=== PATIENT | female | born 1965 | race Caucasian/White ===

== ENCOUNTER 2024-02-16 11:38 | Inpatient (IN) | payer BC ==
[~2024-02-16] VITALS: Ht 167.6 cm; Wt 76.7 kg
[2024-02-16] VITALS (22 sets, daily range): BP systolic 111–167; BP diastolic 70–101; PULSE 101–145; RESP 13–29; TEMP 98.5–98.8; O2SAT 90–96
[2024-02-16 12:31] LABS: BASOPHILS % (AUTO) 0.4 % (0-1); EOSINOPHILS % (AUTO) 0 % (0-6); HEMATOCRIT 40.8 % (35.0-45.0); HEMOGLOBIN 13.6 g/dl (12.0-16.0); LYMPHOCYTES # (AUTO) 0.6 X10'3 (1.1-4.8); LYMPHOCYTES % (AUTO) 7.9 % (21-51); MEAN CORPUSCULAR HEMOGLOBIN 37.4 PG (27.0-31.0); MEAN CORPUSCULAR HGB CONC 33.2 g/dL (33.0-36.5); MEAN CORPUSCULAR VOLUME 112.5 FL (78-98); MEAN PLATELET VOLUME 7.2 FL (7.4-10.4); MONOCYTES # (AUTO) 0.5 X10'3 (0-0.9); MONOCYTES % (AUTO) 6.2 % (2-12); NEUTROPHILS # (AUTO) 6.2 X10'3 (1.8-7.7); NEUTROPHILS % (AUTO) 85.5 % (42-75); PLATELET COUNT 208 X10'3 (140-440); RED BLOOD COUNT 3.62 X10'6 (4.20-5.60); RED CELL DISTRIBUTION WIDTH 13.9 % (11.5-14.5); WHITE BLOOD COUNT 7.3 X10'3 (4.5-11.0)
[2024-02-16 12:40] LABS: ALANINE AMINOTRANSFERASE 37 U/L (12-78); ALBUMIN 3.8 G/DL (3.4-5.0); ALBUMIN/GLOBULIN RATIO 0.9 (1.1-1.5); ALKALINE PHOSPHATASE 54 IU/L (46-116); ANION GAP 9 (8-16); ASPARTATE AMINO TRANSFERASE 41 U/L (10-37); BILIRUBIN,TOTAL 0.4 MG/DL (0.1-1.0); BLOOD UREA NITROGEN 7 MG/DL (7-18); CALCIUM 8.6 MG/DL (8.5-10.1); CHLORIDE 106 MMOL/L (99-107); CREATININE 0.78 MG/DL (0.40-0.90); GLUCOSE 106 MG/DL (70-104); LIPASE 27 U/L (16-77); POTASSIUM 3.8 MMOL/L (3.5-5.1); SODIUM 139 MMOL/L (135-145); TOTAL PROTEIN 7.9 G/DL (6.4-8.2); eCRCL 73 ML/MIN; eGFR 76 ML/MIN
[2024-02-16 12:57] LABS: PLATELET ESTIMATE DECREASED
[2024-02-16] MEDS: phenoBARBITAL inj 130 MG in normal saline 100ml IV soln 99 ML IV SCH (14:21)
[2024-02-16] MEDS ORDERED: proCHLORperazine 10 MG/2 ml inj IV PRN (14:55)
[2024-02-16] MEDS ORDERED: ondansetron/PF 4mg/2ml inj IV PRN (14:55)
[2024-02-16] MEDS ORDERED: meperidine/PF 25mg/ml syringe IV PRN (14:55)
[2024-02-16] MEDS ORDERED: enalaprilat dihydrate 2.5mg/2ml vial IV PRN (14:55)
[2024-02-16] MEDS ORDERED: labetalol 20mg/4ml (5mg/ml) syringe IV PRN (14:55)
[2024-02-16] MEDS ORDERED: morphine 2 MG/ML inj. syringe IV PRN (14:55)
[2024-02-16] MEDS: HYDROmorphone 1 mg/ml syringe IV ONE (15:03)
[2024-02-16] MEDS: thiamine 100mg/ml 2ml inj. IV ONE (15:03)
[2024-02-16] MEDS ORDERED: potassium Cl 20 mEq SR tablet PO PRN ×2 (15:05)
[2024-02-16] MEDS ORDERED: mag hydrox/Alum hydrox/simeth 30ml oral suspension PO PRN (15:05)
[2024-02-16] MEDS ORDERED: HYDROcodone/acetaminophen 5mg/325mg tablet PO PRN (15:05)
[2024-02-16] MEDS ORDERED: HYDROcodone/acetaminophen 10/325mg tab PO PRN (15:05)
[2024-02-16] MEDS ORDERED: acetaminophen 325mg tablet PO PRN (15:05)
[2024-02-16] MEDS ORDERED: magnesium hydroxide 30ml (MOM) UD suspension PO PRN (15:05)
[2024-02-16] MEDS: thiamine 100mg tablet PO SCH (15:10)
[2024-02-16] MEDS ORDERED: haloperidol lactate 5mg/ml inj IM PRN (15:10)
[2024-02-16] MEDS ORDERED: LORazepam 2 mg/ml vial IV PRN (15:10)
[2024-02-16] MEDS ORDERED: haloperidol 5mg tablet PO PRN (15:10)
[2024-02-16] MEDS: folic acid 1mg tablet PO SCH (15:10)
[2024-02-16] MEDS: normal saline 1000ml 1,000 ML IV ONE (15:11)
[2024-02-16] MEDS: cefoxitin sod inj 2,000 MG in normal saline 100ml IV soln 100 ML IV SCH (15:12)
[2024-02-16] MEDS: IOHEXOL 12MG/ML oral solution 500 ML BOTTLE PO ONE (15:15)
[2024-02-16] MEDS: ringers solution, lacted 1,000 ML IV SCH (15:16)
[2024-02-16 15:19] LABS: APTT 25 SECONDS (22-32); PROTHROMBIN TIME 10.9 SECONDS (9.0-12.0)
[2024-02-16] MEDS ORDERED: iohexol 300mg/ml 100ml inj. ONE (15:20)
[2024-02-16] MEDS: BUPIVACAINE liposomal/PF 13.3 MG/ML vial IM ONE (15:34)
[2024-02-16] MEDS: BUPIVAcaine 2.5mg/ml inj 50ml vial (contains preservative) ONE (15:34)
[2024-02-16] MEDS ORDERED: sevoflurane 250ml liquid IH ONE (15:52)
[2024-02-16] MEDS ORDERED: midazolam 1 mg/ML 2ml injection ONE (16:03)
[2024-02-16] MEDS ORDERED: fentaNYL/PF 50MCG/1 ML 2ML syringe ONE (16:03)
[2024-02-16] MEDS ORDERED: propofol inj 20 ML IV ONE (16:05)
[2024-02-16] MEDS ORDERED: LIDOcaine 2% (20mg/ml) 5ml vial ONE (16:05)
[2024-02-16] MEDS ORDERED: dexamethasone sod phosphate 4mg/ml inj. ONE (16:10)
[2024-02-16] MEDS ORDERED: rocuronium 10mg/ml inj IV ONE (16:10)
[2024-02-16] MEDS ORDERED: morphine 4 MG/ML inj SYRINge ONE (16:49)
[2024-02-16] MEDS ORDERED: ondansetron/PF 4mg/2ml inj ONE (17:16)
[2024-02-16] MEDS ORDERED: neostigmine methylsulfate 1 MG/ML 10ml vial ONE (17:18)
[2024-02-16] MEDS ORDERED: acetaminophen 1,000mg/100ml IV 100 ML IV ONE (17:19)
[2024-02-16] MEDS: sugammadex 200mg/2ml injection IV ONE (17:25)
[2024-02-16] MEDS: meperidine/PF 25mg/ml syringe IV PRN ×2 (17:47→18:14)
[2024-02-16] MEDS: morphine 4 MG/ML inj SYRINge IV PRN (17:49)
[2024-02-16] MEDS: ketorolac trometh 15mg/ml vial 15 MG/ML ML IV ONE (18:46)
[2024-02-16] MEDS ORDERED: phenoBARBITAL inj 130 MG in normal saline 100ml IV soln 99 ML IV SCH (20:00)
[2024-02-16] MEDS: docusate sod 100mg capsule PO SCH (20:00)
[2024-02-16] MEDS: normal saline 1000ml 1,000 ML IV SCH (22:00)
[2024-02-16] MEDS ORDERED: ROSU5TAB43 PO (22:54)
[2024-02-16] MEDS ORDERED: SERT-434 PO (22:54)
[2024-02-16] MEDS ORDERED: METO25TA6 PO (22:54)
[2024-02-16] MEDS ORDERED: TIZA-205 PO (22:54)
[2024-02-17] VITALS (37 sets, daily range): BP systolic 107–168; BP diastolic 56–88; PULSE 92–122; RESP 14–26; TEMP 97.1–99.5; O2SAT 87–98
[2024-02-17] MEDS ORDERED: phenoBARBITAL inj 130 MG in normal saline 100ml IV soln 99 ML IV SCH (00:24)
[2024-02-17] MEDS ORDERED: tizanidine 4mg tablet PO PRN (04:55)
[2024-02-17] MEDS: morphine 2 MG/ML inj. syringe IV PRN ×2 (05:15→21:15)
[2024-02-17] MEDS: normal saline 500ml IV soln 500 ML IV SCH (07:24)
[2024-02-17 07:46] LABS: BASOPHILS % (AUTO) 0.1 % (0-1); EOSINOPHILS % (AUTO) 0 % (0-6); HEMATOCRIT 25.2 % (35.0-45.0); HEMOGLOBIN 8.2 g/dl (12.0-16.0); LYMPHOCYTES # (AUTO) 0.3 X10'3 (1.1-4.8); LYMPHOCYTES % (AUTO) 3.1 % (21-51); MEAN CORPUSCULAR HEMOGLOBIN 36.7 PG (27.0-31.0); MEAN CORPUSCULAR HGB CONC 32.4 g/dL (33.0-36.5); MEAN CORPUSCULAR VOLUME 113.3 FL (78-98); MEAN PLATELET VOLUME 7.7 FL (7.4-10.4); MONOCYTES # (AUTO) 0.7 X10'3 (0-0.9); MONOCYTES % (AUTO) 6.8 % (2-12); NEUTROPHILS # (AUTO) 9.4 X10'3 (1.8-7.7); PLATELET COUNT 231 X10'3 (140-440); RED BLOOD COUNT 2.22 X10'6 (4.20-5.60); RED CELL DISTRIBUTION WIDTH 13.6 % (11.5-14.5); WHITE BLOOD COUNT 10.4 X10'3 (4.5-11.0)
[2024-02-17] MEDS ORDERED: ROSUVASTATIN CALCIUM 5 MG TABLET PO SCH (08:00)
[2024-02-17 08:12] LABS: ALANINE AMINOTRANSFERASE 22 U/L (12-78); ALBUMIN 2.6 G/DL (3.4-5.0); ALBUMIN/GLOBULIN RATIO 0.8 (1.1-1.5); ALKALINE PHOSPHATASE 25 IU/L (46-116); AMYLASE 24 U/L (25-115); ANION GAP 10 (8-16); ASPARTATE AMINO TRANSFERASE 24 U/L (10-37); BILIRUBIN,TOTAL 0.6 MG/DL (0.1-1.0); BLOOD UREA NITROGEN 9 MG/DL (7-18); BUN/CREATININE RATIO 11.1 (10.0-20.0); CALCIUM 7.2 MG/DL (8.5-10.1); CHLORIDE 108 MMOL/L (99-107); CREATININE 0.81 MG/DL (0.40-0.90); GLUCOSE 123 MG/DL (70-104); MAGNESIUM 1.4 MG/DL (1.5-2.4); PHOSPHORUS 3.8 MG/DL (2.3-4.5); POTASSIUM 3.7 MMOL/L (3.5-5.1); SODIUM 141 MMOL/L (135-145); TOTAL CARBON DIOXIDE 23.4 MMOL/L (24-32); TOTAL PROTEIN 5.8 G/DL (6.4-8.2); eCRCL 70 ML/MIN; eGFR 72 ML/MIN
[2024-02-17] MEDS: metoprolol tartrate 25mg tablet PO SCH (08:50)
[2024-02-17] MEDS: sertraline 50mg tablet PO SCH (08:51)
[2024-02-17] MEDS: multivitamins, therapeutics tablet PO SCH (08:52)
[2024-02-17] MEDS: LORazepam 1 MG tablet PO PRN (08:53)
[2024-02-17 10:05] LABS: APTT 23 SECONDS (22-32); FIBRINOGEN 267 MG/DL (177-424); INR 1.1 INR; PROTHROMBIN TIME 11.8 SECONDS (9.0-12.0)
[2024-02-17] MEDS ORDERED: atorvastatin 20mg tablet PO SCH (10:10)
[2024-02-17] MEDS ORDERED: iohexol 300mg/ml 100ml inj. ONE (14:00)
[2024-02-17] MEDS: LORazepam 2 mg/ml vial IV PRN (14:02)
[2024-02-17] MEDS ORDERED: hydrALAZINE 20mg/ml inj. IV PRN (15:20)
[2024-02-17] MEDS ORDERED: labetalol 20mg/4ml (5mg/ml) syringe IV PRN (15:20)
[2024-02-17] MEDS ORDERED: morphine 4 MG/ML inj SYRINge IV PRN (15:20)
[2024-02-17] MEDS ORDERED: morphine 2 MG/ML inj. syringe IV PRN (15:20)
[2024-02-17] MEDS ORDERED: fentaNYL/PF 50MCG/1 ML 2ML syringe IV PRN ×2 (15:20)
[2024-02-17] MEDS: ringers solution, lacted 1,000 ML IV SCH (15:20)
[2024-02-17 15:45] LABS: HEMATOCRIT 23.8 % (35.0-45.0); HEMOGLOBIN 7.9 g/dl (12.0-16.0); MEAN CORPUSCULAR HEMOGLOBIN 36.3 PG (27.0-31.0); MEAN CORPUSCULAR HGB CONC 33.3 g/dL (33.0-36.5); MEAN CORPUSCULAR VOLUME 108.9 FL (78-98); MEAN PLATELET VOLUME 7.8 FL (7.4-10.4); PLATELET COUNT 176 X10'3 (140-440); RED BLOOD COUNT 2.18 X10'6 (4.20-5.60); RED CELL DISTRIBUTION WIDTH 18.1 % (11.5-14.5); WHITE BLOOD COUNT 10.3 X10'3 (4.5-11.0)
[2024-02-17] MEDS ORDERED: sevoflurane 250ml liquid IH ONE (15:59)
[2024-02-17] MEDS ORDERED: propofol inj 20 ML IV ONE (16:01)
[2024-02-17] MEDS ORDERED: LIDOcaine 2% (20mg/ml) 5ml vial ONE (16:01)
[2024-02-17] MEDS ORDERED: rocuronium 10mg/ml inj IV ONE (16:01)
[2024-02-17] MEDS ORDERED: albumin (Human) 5% 250ml 250 ML IV ONE (16:02)
[2024-02-17] MEDS ORDERED: fentaNYL/PF 50MCG/1 ML 2ML syringe ONE ×2 (16:06→16:57)
[2024-02-17] MEDS ORDERED: acetaminophen 1,000mg/100ml IV 100 ML IV ONE (16:28)
[2024-02-17] MEDS ORDERED: ondansetron/PF 4mg/2ml inj ONE (16:28)
[2024-02-17] MEDS ORDERED: labetalol 20mg/4ml (5mg/ml) syringe IV ONE (16:37)
[2024-02-17] MEDS ORDERED: sugammadex 200mg/2ml injection IV ONE (16:56)
[2024-02-17 17:49] LABS: ISTAT ANION GAP 12 (8-12); ISTAT BUN 7 mg/dL (7-18); ISTAT CL 108 mmol/L (99-107); ISTAT CREATININE 0.6 mg/dL (0.6-1.1); ISTAT GLUCOSE 112 mg/dL (70-104); ISTAT HGB 7.1 g/dl (12.0-16.0); ISTAT Hct 21 %PCV (35-45); ISTAT IONIZED CALCIUM 0.96 mmol/L (1.03-1.32); ISTAT K 3.6 mmol/L (3.5-5.1); ISTAT NA 139 mmol/L (135-145); ISTAT TOTAL CO2 19 mmol/L (24-32); ISTAT eGFR > 90 ML/MIN; POC BUN/CREATININE RATIO 11.7 (6.6-38.0)
[2024-02-17] MEDS: ondansetron/PF 4mg/2ml inj IV PRN (18:35)
[2024-02-17 19:48] LABS: ABG BASE EXCESS -3.2 mmol/L (-2.0-3.0); ABG HCO3 21.3 mmol/L (21.0-28.0); ABG OXYGEN SATURATION 92.1 % (94.0-98.0); ABG PCO2 (T) 36.4 mmHg (32.0-45.0); ABG PH (T) 7.386 (7.350-7.450); ABG PO2 (T) 65.4 mmHg (83.0-108.0); ALLEN'S TEST POSITIVE; FCOHb 0.7 % (0.5-1.5); FHHb 7.8 % (0.0-5.0); FLOW 15 L/min; FMetHb 0.3 % (0.0-1.5); FO2Hb 91.2 % (94.0-98.0); MODE MASK - SIMPLE; PATIENT TEMPERATURE 37.4
[2024-02-17 22:28] LABS: BASOPHILS % (AUTO) 0.2 % (0-1); EOSINOPHILS % (AUTO) 0 % (0-6); HEMATOCRIT 25.7 % (35.0-45.0); HEMOGLOBIN 8.7 g/dl (12.0-16.0); LYMPHOCYTES # (AUTO) 0.3 X10'3 (1.1-4.8); LYMPHOCYTES % (AUTO) 2.6 % (21-51); MEAN CORPUSCULAR HEMOGLOBIN 35.3 PG (27.0-31.0); MEAN CORPUSCULAR HGB CONC 33.7 g/dL (33.0-36.5); MEAN CORPUSCULAR VOLUME 104.6 FL (78-98); MONOCYTES # (AUTO) 0.5 X10'3 (0-0.9); MONOCYTES % (AUTO) 4.6 % (2-12); NEUTROPHILS # (AUTO) 9.3 X10'3 (1.8-7.7); NEUTROPHILS % (AUTO) 92.6 % (42-75); PLATELET COUNT 130 X10'3 (140-440); RED BLOOD COUNT 2.46 X10'6 (4.20-5.60); RED CELL DISTRIBUTION WIDTH 19.4 % (11.5-14.5)
[2024-02-17 22:49] LABS: ALANINE AMINOTRANSFERASE 25 U/L (12-78); ALBUMIN 2.9 G/DL (3.4-5.0); ALKALINE PHOSPHATASE 22 IU/L (46-116); ANION GAP 8 (8-16); ASPARTATE AMINO TRANSFERASE 32 U/L (10-37); BILIRUBIN,TOTAL 0.8 MG/DL (0.1-1.0); BLOOD UREA NITROGEN 6 MG/DL (7-18); CHLORIDE 108 MMOL/L (99-107); CREATININE 0.75 MG/DL (0.40-0.90); GLUCOSE 140 MG/DL (70-104); POTASSIUM 3.6 MMOL/L (3.5-5.1); SODIUM 139 MMOL/L (135-145); TOTAL CARBON DIOXIDE 23.1 MMOL/L (24-32); TOTAL PROTEIN 5.9 G/DL (6.4-8.2); eCRCL 101 ML/MIN; eGFR 79 ML/MIN
[2024-02-18] VITALS (19 sets, daily range): BP systolic 126–163; BP diastolic 54–86; PULSE 96–126; RESP 15–28; TEMP 97.9–98.1; O2SAT 93–98
[2024-02-18] MEDS: ondansetron/PF 4mg/2ml inj IV PRN (00:52)
[2024-02-18 05:52] LABS: BASOPHILS % (AUTO) 0 % (0-1); EOSINOPHILS % (AUTO) 0 % (0-6); HEMATOCRIT 23.9 % (35.0-45.0); HEMOGLOBIN 8.4 g/dl (12.0-16.0); LYMPHOCYTES # (AUTO) 0.5 X10'3 (1.1-4.8); LYMPHOCYTES % (AUTO) 4.3 % (21-51); MEAN CORPUSCULAR HEMOGLOBIN 36.7 PG (27.0-31.0); MEAN CORPUSCULAR HGB CONC 35.2 g/dL (33.0-36.5); MEAN CORPUSCULAR VOLUME 104.4 FL (78-98); MEAN PLATELET VOLUME 7.9 FL (7.4-10.4); MONOCYTES # (AUTO) 0.7 X10'3 (0-0.9); MONOCYTES % (AUTO) 6.4 % (2-12); NEUTROPHILS # (AUTO) 9.7 X10'3 (1.8-7.7); NEUTROPHILS % (AUTO) 89.3 % (42-75); PLATELET COUNT 129 X10'3 (140-440); RED BLOOD COUNT 2.29 X10'6 (4.20-5.60); RED CELL DISTRIBUTION WIDTH 19.5 % (11.5-14.5); WHITE BLOOD COUNT 10.9 X10'3 (4.5-11.0)
[2024-02-18 05:59] LABS: ALANINE AMINOTRANSFERASE 24 U/L (12-78); ALBUMIN 2.8 G/DL (3.4-5.0); ALBUMIN/GLOBULIN RATIO 0.9 (1.1-1.5); ALKALINE PHOSPHATASE 24 IU/L (46-116); AMYLASE 20 U/L (25-115); ANION GAP 6 (8-16); ASPARTATE AMINO TRANSFERASE 31 U/L (10-37); BILIRUBIN,TOTAL 0.6 MG/DL (0.1-1.0); BLOOD UREA NITROGEN 7 MG/DL (7-18); BUN/CREATININE RATIO 10.6 (10.0-20.0); CALCIUM 7.4 MG/DL (8.5-10.1); CHLORIDE 107 MMOL/L (99-107); CREATININE 0.66 MG/DL (0.40-0.90); GLUCOSE 110 MG/DL (70-104); MAGNESIUM 1.3 MG/DL (1.5-2.4); PHOSPHORUS 2.2 MG/DL (2.3-4.5); POTASSIUM 3.4 MMOL/L (3.5-5.1); SODIUM 139 MMOL/L (135-145); TOTAL CARBON DIOXIDE 25.6 MMOL/L (24-32); TOTAL PROTEIN 5.9 G/DL (6.4-8.2); eCRCL 86 ML/MIN; eGFR > 90 ML/MIN
[2024-02-18] MEDS: atorvastatin 20mg tablet PO SCH (07:15)
[2024-02-18] MEDS ORDERED: magnesium sulf-water 4G/100mL 100 ML IV PRN (09:35)
[2024-02-18 09:44] LABS: HEMATOCRIT 23.7 % (35.0-45.0); HEMOGLOBIN 8.1 g/dl (12.0-16.0); MEAN CORPUSCULAR HEMOGLOBIN 35.8 PG (27.0-31.0); MEAN CORPUSCULAR HGB CONC 34.1 g/dL (33.0-36.5); MEAN CORPUSCULAR VOLUME 105.2 FL (78-98); MEAN PLATELET VOLUME 7.8 FL (7.4-10.4); PLATELET COUNT 139 X10'3 (140-440); RED BLOOD COUNT 2.25 X10'6 (4.20-5.60); RED CELL DISTRIBUTION WIDTH 19.4 % (11.5-14.5); WHITE BLOOD COUNT 10.6 X10'3 (4.5-11.0)
[2024-02-18] MEDS: haloperidol 5mg tablet PO PRN (09:57)
[2024-02-18] MEDS: folic acid 1mg/0.2ml inj IV SCH (10:04)
[2024-02-18] MEDS: potassium Cl 40MEQ/1/2NS 520ml 520 ML IV PRN (10:04)
[2024-02-18] MEDS ORDERED: ipratropium/albuterol 3ml nebule NEB PRN (10:40)
[2024-02-18] MEDS: chlordiazePOXIDE 25mg capsule PO ONE (12:25)
[2024-02-18 15:26] LABS: HEMOGLOBIN 7.4 g/dl (12.0-16.0); MEAN CORPUSCULAR HEMOGLOBIN 35.2 PG (27.0-31.0); MEAN CORPUSCULAR HGB CONC 33.9 g/dL (33.0-36.5); MEAN CORPUSCULAR VOLUME 103.7 FL (78-98); MEAN PLATELET VOLUME 7.7 FL (7.4-10.4); PLATELET COUNT 128 X10'3 (140-440); RED BLOOD COUNT 2.11 X10'6 (4.20-5.60); RED CELL DISTRIBUTION WIDTH 19.2 % (11.5-14.5); WHITE BLOOD COUNT 8.4 X10'3 (4.5-11.0)
[2024-02-18 15:33] LABS: HEMATOCRIT 21.8 % (35.0-45.0)
[2024-02-18 17:53] LABS: HEMATOCRIT 23.2 % (35.0-45.0); HEMOGLOBIN 7.9 g/dl (12.0-16.0); MEAN CORPUSCULAR HEMOGLOBIN 36.2 PG (27.0-31.0); MEAN CORPUSCULAR HGB CONC 34.1 g/dL (33.0-36.5); MEAN CORPUSCULAR VOLUME 106.4 FL (78-98); MEAN PLATELET VOLUME 7.9 FL (7.4-10.4); PLATELET COUNT 125 X10'3 (140-440); RED BLOOD COUNT 2.18 X10'6 (4.20-5.60); RED CELL DISTRIBUTION WIDTH 19.4 % (11.5-14.5); WHITE BLOOD COUNT 7.9 X10'3 (4.5-11.0)
[2024-02-18] MEDS: metoprolol tartrate 1mg/ml inj IV SCH (18:19)
[2024-02-18] MEDS: chlordiazePOXIDE 25mg capsule PO SCH (20:00)
[2024-02-18] MEDS: thiamine 100mg/ml 2ml inj. IM SCH (21:39)
[2024-02-18] MEDS: LORazepam 2 mg/ml vial IV PRN (22:46)
[2024-02-18 22:58] LABS: HEMATOCRIT 23.5 % (35.0-45.0); HEMOGLOBIN 8.2 g/dl (12.0-16.0); MEAN CORPUSCULAR HEMOGLOBIN 36.5 PG (27.0-31.0); MEAN CORPUSCULAR HGB CONC 34.7 g/dL (33.0-36.5); MEAN CORPUSCULAR VOLUME 105.1 FL (78-98); MEAN PLATELET VOLUME 7.8 FL (7.4-10.4); PLATELET COUNT 148 X10'3 (140-440); RED BLOOD COUNT 2.23 X10'6 (4.20-5.60); WHITE BLOOD COUNT 7.3 X10'3 (4.5-11.0)
[2024-02-19] VITALS (9 sets, daily range): BP systolic 106–161; BP diastolic 66–94; PULSE 98–123; RESP 16–34; TEMP 97.5–98.1; O2SAT 91–99
[2024-02-19] MEDS: haloperidol lactate 5mg/ml inj IM PRN (01:26)
[2024-02-19] MEDS: pantoprazole 40 MG vial IV ONE (02:55)
[2024-02-19 03:51] LABS: BASOPHILS % (AUTO) 0.3 % (0-1); EOSINOPHILS % (AUTO) 0 % (0-6); HEMATOCRIT 22.8 % (35.0-45.0); HEMOGLOBIN 7.7 g/dl (12.0-16.0); LYMPHOCYTES # (AUTO) 0.6 X10'3 (1.1-4.8); LYMPHOCYTES % (AUTO) 10.1 % (21-51); MEAN CORPUSCULAR HEMOGLOBIN 35.6 PG (27.0-31.0); MEAN CORPUSCULAR HGB CONC 33.8 g/dL (33.0-36.5); MEAN CORPUSCULAR VOLUME 105.1 FL (78-98); MONOCYTES # (AUTO) 0.6 X10'3 (0-0.9); MONOCYTES % (AUTO) 9.7 % (2-12); NEUTROPHILS # (AUTO) 5.1 X10'3 (1.8-7.7); NEUTROPHILS % (AUTO) 79.9 % (42-75); PLATELET COUNT 137 X10'3 (140-440); RED BLOOD COUNT 2.17 X10'6 (4.20-5.60); RED CELL DISTRIBUTION WIDTH 18.5 % (11.5-14.5); WHITE BLOOD COUNT 6.4 X10'3 (4.5-11.0)
[2024-02-19 04:03] LABS: ALANINE AMINOTRANSFERASE 30 U/L (12-78); ALBUMIN 2.8 G/DL (3.4-5.0); ALBUMIN/GLOBULIN RATIO 0.8 (1.1-1.5); ALKALINE PHOSPHATASE 25 IU/L (46-116); AMYLASE 25 U/L (25-115); ANION GAP 9 (8-16); ASPARTATE AMINO TRANSFERASE 36 U/L (10-37); BILIRUBIN,TOTAL 0.7 MG/DL (0.1-1.0); BLOOD UREA NITROGEN 8 MG/DL (7-18); BUN/CREATININE RATIO 12.9 (10.0-20.0); CALCIUM 8.1 MG/DL (8.5-10.1); CHLORIDE 105 MMOL/L (99-107); CREATININE 0.62 MG/DL (0.40-0.90); GLUCOSE 79 MG/DL (70-104); MAGNESIUM 1.4 MG/DL (1.5-2.4); POTASSIUM 3.4 MMOL/L (3.5-5.1); SODIUM 137 MMOL/L (135-145); TOTAL CARBON DIOXIDE 23.4 MMOL/L (24-32); TOTAL PROTEIN 6.1 G/DL (6.4-8.2); eCRCL 91 ML/MIN; eGFR > 90 ML/MIN
[2024-02-19 04:25] LABS: PHOSPHORUS 1.2 MG/DL (2.3-4.5)
[2024-02-19] MEDS ORDERED: sodium phosphate inj. 15 MMOL in dextrose 5%-water 250 ML IV PRN (04:30)
[2024-02-19] MEDS ORDERED: Neutra Phos packet PO PRN (04:30)
[2024-02-19 06:43] LABS: HEMOGLOBIN 7.8 g/dl (12.0-16.0); MEAN CORPUSCULAR HEMOGLOBIN 35.5 PG (27.0-31.0); MEAN CORPUSCULAR HGB CONC 33.9 g/dL (33.0-36.5); MEAN CORPUSCULAR VOLUME 104.6 FL (78-98); MEAN PLATELET VOLUME 7.9 FL (7.4-10.4); PLATELET COUNT 142 X10'3 (140-440); RED CELL DISTRIBUTION WIDTH 18.2 % (11.5-14.5); WHITE BLOOD COUNT 6.4 X10'3 (4.5-11.0)
[2024-02-19] MEDS: pantoprazole 40 MG vial IV SCH (07:49)
[2024-02-19] MEDS: sodium phosphate inj. 30 MMOL in dextrose 5%-water 250 ML IV PRN (07:50)
[2024-02-19] MEDS ORDERED: pantoprazole 40 MG vial IV SCH (08:00)
[2024-02-19 11:55] LABS: HEMATOCRIT 24.4 % (35.0-45.0); HEMOGLOBIN 8.4 g/dl (12.0-16.0); MEAN CORPUSCULAR HEMOGLOBIN 36.2 PG (27.0-31.0); MEAN CORPUSCULAR HGB CONC 34.3 g/dL (33.0-36.5); MEAN CORPUSCULAR VOLUME 105.7 FL (78-98); MEAN PLATELET VOLUME 8.1 FL (7.4-10.4); PLATELET COUNT 174 X10'3 (140-440); RED BLOOD COUNT 2.31 X10'6 (4.20-5.60); RED CELL DISTRIBUTION WIDTH 18.1 % (11.5-14.5); WHITE BLOOD COUNT 8.2 X10'3 (4.5-11.0)
[2024-02-19] MEDS: metoprolol succinate 25mg (24-HOUR) SR. Tablet PO SCH (12:45)
[2024-02-19] MEDS: LORazepam 1 MG tablet PO PRN (14:32)
[2024-02-19 14:49] LABS: HEMATOCRIT 25.5 % (35.0-45.0); HEMOGLOBIN 8.6 g/dl (12.0-16.0); MEAN CORPUSCULAR HEMOGLOBIN 35.6 PG (27.0-31.0); MEAN CORPUSCULAR HGB CONC 33.8 g/dL (33.0-36.5); MEAN CORPUSCULAR VOLUME 105.4 FL (78-98); PLATELET COUNT 207 X10'3 (140-440); RED BLOOD COUNT 2.42 X10'6 (4.20-5.60); RED CELL DISTRIBUTION WIDTH 18.1 % (11.5-14.5); WHITE BLOOD COUNT 8.8 X10'3 (4.5-11.0)
[2024-02-19] MEDS: potassium phosphate inj 30 MMOL in normal saline 500ml IV soln 500 ML IV STA (15:46)
[2024-02-19 19:18] LABS: HEMATOCRIT 24.7 % (35.0-45.0); HEMOGLOBIN 8.5 g/dl (12.0-16.0); MEAN CORPUSCULAR HEMOGLOBIN 35.9 PG (27.0-31.0); MEAN CORPUSCULAR HGB CONC 34.2 g/dL (33.0-36.5); MEAN CORPUSCULAR VOLUME 104.8 FL (78-98); MEAN PLATELET VOLUME 8.1 FL (7.4-10.4); PLATELET COUNT 186 X10'3 (140-440); RED BLOOD COUNT 2.36 X10'6 (4.20-5.60); RED CELL DISTRIBUTION WIDTH 17.8 % (11.5-14.5); WHITE BLOOD COUNT 8.1 X10'3 (4.5-11.0)
[2024-02-19 22:39] LABS: HEMATOCRIT 25.4 % (35.0-45.0); HEMOGLOBIN 8.8 g/dl (12.0-16.0); MEAN CORPUSCULAR HEMOGLOBIN 36.3 PG (27.0-31.0); MEAN CORPUSCULAR HGB CONC 34.6 g/dL (33.0-36.5); MEAN CORPUSCULAR VOLUME 104.8 FL (78-98); MEAN PLATELET VOLUME 7.6 FL (7.4-10.4); PLATELET COUNT 197 X10'3 (140-440); RED BLOOD COUNT 2.42 X10'6 (4.20-5.60); WHITE BLOOD COUNT 9.3 X10'3 (4.5-11.0)
[2024-02-20 02:00] VITALS: BP 158/97; PULSE 127; RESP 26; TEMP 96.6; O2SAT 94
[2024-02-20 04:59] LABS: BILIRUBIN,URINE NEGATIVE (Neg); CLARITY,URINE CLEAR (Clear); COLOR,URINE YELLOW (Yellow); GLUCOSE, URINE NEGATIVE (Neg); KETONES,URINE 40 mg/dl (Neg); LEUKOCYTE ESTERASE ,URINE NEGATIVE (Neg); NITRITES, URINE NEGATIVE (Neg); OCCULT BLOOD,URINE NEGATIVE (Neg); PROTEIN,URINE NEGATIVE (Neg); UROBILINOGEN,URINE 0.2 E.U/dL (0.2-1.0)
[2024-02-20 05:08] LABS: URINE AMPHETAMINE SCREEN NEGATIVE (Neg); URINE BARBITUATE SCREEN POSITIVE (Neg); URINE BENZODIAZEPINES SCREEN POSITIVE (Neg); URINE CANNABINOID SCREEN POSITIVE (Neg); URINE COCAINE SCREEN NEGATIVE (Neg); URINE METHADONE SCREEN NEGATIVE (Neg); URINE OPIATE SCREEN POSITIVE (Neg); URINE PHENCYCLIDINE SCREEN NEGATIVE (Neg)
[2024-02-20 05:16] LABS: UA COLLECTION TYPE NON-SPECIFIED
[2024-02-20 06:08] VITALS: BP 153/82; PULSE 124; RESP 25; TEMP 97.2; O2SAT 95
[2024-02-20 06:37] LABS: BASOPHILS % (AUTO) 0.3 % (0-1); EOSINOPHILS % (AUTO) 0.2 % (0-6); HEMATOCRIT 25.4 % (35.0-45.0); HEMOGLOBIN 8.6 g/dl (12.0-16.0); LYMPHOCYTES # (AUTO) 0.8 X10'3 (1.1-4.8); LYMPHOCYTES % (AUTO) 9.2 % (21-51); MEAN CORPUSCULAR HGB CONC 33.8 g/dL (33.0-36.5); MEAN CORPUSCULAR VOLUME 106.3 FL (78-98); MEAN PLATELET VOLUME 7.9 FL (7.4-10.4); MONOCYTES # (AUTO) 0.9 X10'3 (0-0.9); NEUTROPHILS # (AUTO) 6.7 X10'3 (1.8-7.7); NEUTROPHILS % (AUTO) 79.3 % (42-75); PLATELET COUNT 195 X10'3 (140-440); RED BLOOD COUNT 2.39 X10'6 (4.20-5.60); RED CELL DISTRIBUTION WIDTH 17.9 % (11.5-14.5); WHITE BLOOD COUNT 8.4 X10'3 (4.5-11.0)
[2024-02-20 07:04] LABS: ALANINE AMINOTRANSFERASE 23 U/L (12-78); ALBUMIN 2.5 G/DL (3.4-5.0); ALBUMIN/GLOBULIN RATIO 0.8 (1.1-1.5); ALKALINE PHOSPHATASE 28 IU/L (46-116); AMYLASE 34 U/L (25-115); ANION GAP 13 (8-16); ASPARTATE AMINO TRANSFERASE 24 U/L (10-37); BILIRUBIN,TOTAL 0.6 MG/DL (0.1-1.0); BLOOD UREA NITROGEN 9 MG/DL (7-18); BUN/CREATININE RATIO 15.3 (10.0-20.0); CALCIUM 7.7 MG/DL (8.5-10.1); CHLORIDE 106 MMOL/L (99-107); CREATININE 0.59 MG/DL (0.40-0.90); GLUCOSE 96 MG/DL (70-104); MAGNESIUM 1.3 MG/DL (1.5-2.4); PHOSPHORUS 2.4 MG/DL (2.3-4.5); SODIUM 139 MMOL/L (135-145); TOTAL CARBON DIOXIDE 20.3 MMOL/L (24-32); TOTAL PROTEIN 5.7 G/DL (6.4-8.2); eCRCL 96 ML/MIN; eGFR > 90 ML/MIN
[2024-02-20 08:00] VITALS: RESP 26; O2SAT 96
[2024-02-20] MEDS: potassium Cl 40MEQ/1/2NS 520ml 520 ML IV PRN (11:11)
[2024-02-20] MEDS: metoprolol succinate 25mg (24-HOUR) SR. Tablet PO SCH (11:12)
[2024-02-20 12:00] VITALS: BP 158/96; PULSE 127; RESP 26; TEMP 97.8; O2SAT 96
[2024-02-20 18:00] VITALS: BP 161/92; PULSE 103; RESP 26; TEMP 98.4; O2SAT 95
[2024-02-20 22:00] VITALS: BP 134/68; PULSE 89; RESP 19; TEMP 97.4; O2SAT 96
[2024-02-21 02:00] VITALS: BP 133/84; PULSE 87; RESP 18; TEMP 97.6; O2SAT 100
[2024-02-21 06:00] VITALS: BP 134/74; PULSE 88; RESP 19; TEMP 97.4; O2SAT 97
[2024-02-21 06:40] LABS: BASOPHILS % (AUTO) 0.2 % (0-1); EOSINOPHILS # (AUTO) 0.1 X10'3 (0-0.9); EOSINOPHILS % (AUTO) 1.1 % (0-6); HEMATOCRIT 23.5 % (35.0-45.0); LYMPHOCYTES # (AUTO) 0.8 X10'3 (1.1-4.8); MEAN CORPUSCULAR HEMOGLOBIN 36.4 PG (27.0-31.0); MEAN CORPUSCULAR HGB CONC 34.2 g/dL (33.0-36.5); MEAN CORPUSCULAR VOLUME 106.6 FL (78-98); MEAN PLATELET VOLUME 8.3 FL (7.4-10.4); MONOCYTES # (AUTO) 0.9 X10'3 (0-0.9); MONOCYTES % (AUTO) 12.2 % (2-12); NEUTROPHILS # (AUTO) 5.6 X10'3 (1.8-7.7); NEUTROPHILS % (AUTO) 75.5 % (42-75); PLATELET COUNT 209 X10'3 (140-440); WHITE BLOOD COUNT 7.4 X10'3 (4.5-11.0)
[2024-02-21 07:06] LABS: ALANINE AMINOTRANSFERASE 18 U/L (12-78); ALBUMIN 2.3 G/DL (3.4-5.0); ALBUMIN/GLOBULIN RATIO 0.7 (1.1-1.5); ALKALINE PHOSPHATASE 30 IU/L (46-116); AMYLASE 53 U/L (25-115); ANION GAP 16 (8-16); ASPARTATE AMINO TRANSFERASE 29 U/L (10-37); BILIRUBIN,TOTAL 0.5 MG/DL (0.1-1.0); BLOOD UREA NITROGEN 6 MG/DL (7-18); BUN/CREATININE RATIO 9.2 (10.0-20.0); CHLORIDE 107 MMOL/L (99-107); CREATININE 0.65 MG/DL (0.40-0.90); GLUCOSE 65 MG/DL (70-104); PHOSPHORUS 2.6 MG/DL (2.3-4.5); POTASSIUM 3.3 MMOL/L (3.5-5.1); SODIUM 140 MMOL/L (135-145); TOTAL CARBON DIOXIDE 17.4 MMOL/L (24-32); TOTAL PROTEIN 5.6 G/DL (6.4-8.2); eCRCL 87 ML/MIN; eGFR > 90 ML/MIN
[2024-02-21] MEDS: LORazepam 2 mg/ml vial IV PRN (07:55)
[2024-02-21 08:00] VITALS: RESP 19; O2SAT 97
[2024-02-21] MEDS ORDERED: thiamine tablet PO (09:08)
[2024-02-21] MEDS ORDERED: MULT-25 PO (09:08)
[2024-02-21] MEDS ORDERED: NALT50TA5 PO (09:13)
[2024-02-21 10:27] VITALS: PULSE 99; RESP 20; O2SAT 97
[2024-02-21] MEDS ORDERED: magnesium sulf-water 2g/50mL 50 ML IV PRN (10:45)
[2024-02-21] MEDS ORDERED: magnesium sulf-water 4G/100mL 100 ML IV PRN (10:45)
[2024-02-21] MEDS ORDERED: potassium Cl 40MEQ/1/2NS 520ml 520 ML IV PRN (10:45)
[2024-02-21] MEDS ORDERED: potassium Cl 20 mEq SR tablet PO PRN (10:45)
[2024-02-21 11:15] VITALS: BP 133/77; PULSE 88; RESP 20; TEMP 97.4; O2SAT 100
[2024-02-21] MEDS ORDERED: MAGN500C4 PO (12:35)
[2024-02-21] MEDS: LORazepam 1 MG tablet PO PRN (14:52)
[2024-02-21] MEDS: potassium Cl 20 mEq SR tablet PO PRN (14:53)
[2024-02-21] MEDS: magnesium Cl slow-release 64mg tablet PO PRN (14:53)
[2024-02-21 15:00] VITALS: BP 133/77; PULSE 103; RESP 16; TEMP 97.8; O2SAT 99
[2024-02-21] MEDS ORDERED: K and/or MAG REPLACEMENT MC SCH (20:00)
== END 2024-02-21 17:43 | disposition home or self-care (01) | DRG 330 ==
LOC: ER 11:39 → ED HOLD 15:17 → PCU 3S 21:11 → CICU 2S 02-17 20:45 → PCU 3S 02-18 14:25
PROVIDERS: ADMIT Family Medicine; ATTEND Family Medicine
PROC: 0DBH0ZZ Excision of Cecum, Open Approach (ICD-10-PCS; 2024-02-16)
PROC: 0DBB0ZZ Excision of Ileum, Open Approach (ICD-10-PCS; 2024-02-17)
PROC: 0DBH0ZZ Excision of Cecum, Open Approach (ICD-10-PCS; 2024-02-17)
PROC: BW21ZZZ Computerized Tomography (CT Scan) of Abdomen and Pelvis (ICD-10-PCS; 2024-02-17)
PROC: 30233N1 Transfusion of Nonautologous Red Blood Cells into Peripheral Vein, Percutaneous Approach (ICD-10-PCS; principal; 2024-02-17 15:57)
DX: K56.2 Volvulus (principal); F10.231 Alcohol dependence with withdrawal delirium; J45.909 Unspecified asthma, uncomplicated; K21.9 Gastro-esophageal reflux disease without esophagitis; J42 Unspecified chronic bronchitis; I95.9 Hypotension, unspecified; D64.9 Anemia, unspecified; E87.6 Hypokalemia; E83.39 Other disorders of phosphorus metabolism; E83.42 Hypomagnesemia; I10 Essential (primary) hypertension; R00.0 Tachycardia, unspecified
CPT/HCPCS: 96365; 96375; 99285; Z7506; Z7508; 36415; 36430; 36600; 71045; 74178; 80047; 80053; 80305; 80320; 81003; 82140; 82150; 82803; 82948; 83605; 83690; 83735; 84100; 85008; 85018; 85025; 85027; 85384; 85610; 85730; 86885; 86900; 86901; 86920; 87040; 87081; 93005; 94760; 97110; 97116; 97162; A4615; A4618; A5200; A6213; A6258; A6407; A6449; A7000; C1758; C9290; G0378; J0131; J0694; J1100; J1171; J1630; J1885; J2060; J2175; J2250; J2270; J2405; J2470; J2560; J2704; J2710; J3010; J3411; J3480; J3490; J7030; J7040; J7060; J7120; P9016; P9045; Q9967